=== PATIENT | male | born 1990 | race Caucasian/White ===

== ENCOUNTER 2017-01-02 19:17 | Emergency (ER) | payer BC ==
[~2017-01-02] VITALS: Ht 172.7 cm; Wt 86.2 kg
[2017-01-02 19:43] VITALS: BP_SYST 141
[2017-01-02] MEDS ORDERED: IBUPROFEN 800 MG TABLET PO ONE (20:00)
[2017-01-02] MEDS ORDERED: HYDROcodone/ACETAMIN 5-325 MG TAB (NORCO/ VICODIN) PO ONE (20:30)
[2017-01-02 21:15] VITALS: BP_SYST 138
== END 2017-01-02 21:15 | disposition home or self-care (01) ==
LOC: SED 19:17
DX: S62.615A Displaced fracture of proximal phalanx of left ring finger, initial encounter for closed fracture (principal); W22.8XXA Striking against or struck by other objects, initial encounter; Y93.89 Activity, other specified; Y92.89 Other specified places as the place of occurrence of the external cause; Y99.8 Other external cause status
CPT/HCPCS: 73140-TC; 99284